=== PATIENT | male | born 1935 | race Caucasian/White ===

== ENCOUNTER 2017-06-27 08:57 | Outpatient (CLI) | payer MEDICARE, OTHER ==
[~2017-06-27] VITALS: Ht 182.9 cm; Wt 86.1 kg
--- NOTE | ~2017-06-27 | OR ---
PATIENT'S NAME: TANK KEARNS [facility] AGE: 82 Y [address] 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 POSTOPERATIVE DIAGNOSIS: Severe life-limiting claudication of the right lower extremity. PROCEDURE: Aortogram with right lower extremity angiogram. IRONWORKER HELPER SHOP: De Young M.D. ANESTHESIA: MAC, local. ESTIMATED BLOOD LOSS: 10 mL. 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 DESCRIPTION OF PROCEDURE: The patient was brought to the labelling machine operator, placed supine on the labelling machine operator table, and prepped and draped in a sterile manner. Preoperative time-out was performed. The patient received preoperative antibiotics. We gained access to the left common femoral using ultrasound guidance, using a micropuncture needle, followed by a micropuncture wire, followed by a micropuncture sheath. We exchanged using Seldinger technique for a 5-[place]ib[place] short sheath. We went up in the aorta using a 0.035 Glidewire as well as Omni Flush catheter. Prior to cathing the distal aorta, we performed an angiogram, which showed patent renal vessels and patent common external and internal iliac arteries. There was a large stent placed in the external iliac on the right, which was patent. We went up over the aortic bifurcation, parked our catheter in the common femoral on the right, and performed a series of angiograms of the right lower extremity, which showed that the profunda artery was patent. The SFA was occluded with no actual nub. The SFA then reconstituted just above the knee with normal popliteal artery as well as 3-vessel runoff. The patient will require a bypass from the common femoral down to the below-knee pop. Sheath was removed. Pressure was held for 10 minutes. The patient tolerated the procedure well, transferred to the recovery room, and home later that day. PATIENT'S NAME: TANK KEARNS [facility] AGE: 82 Y [address] ROOM: [id number] [place], [place] [address] LOCATION: GPCU ADMIT DATE: 06/27/2017 OR/Procedure Report DISCHARGE DATE: 06/27/2017 FAMILY PHYSICIAN: Deep Trejo MD ATTENDING PHYSICIAN: Zheng Light ZHENG LIGHT MD FKM/modl /[id number] d: 06/27/176 t: 07/01/17 1110, OPERATIVE SUMMARY
[~2017-06-27 08:57] MED LIST: CARDIZEM CD (T120 MG PO; CELEXA40 MG PO; FLOMAX0.4 MG PO; KLONOPIN1 MG PO; LIPITOR40 MG PO; PLAVIX75 MG PO
[2017-06-27 09:48] LABS: BASOPHIL % 0.4 %; EOSINOPHIL # 0.1 K/uL (0.0-0.5); EOSINOPHIL % 1.9 %; HEMOGLOBIN 13.7 g/dL (11.0-16.0); IMMATURE GRANULOCYTE % 0.3 %; LYMPHOCYTE # 1.6 K/uL (0.8-4.0); LYMPHOCYTE % 21.2 %; MCH 32.9 pg (27.0-34.0); MCHC 34.3 gm/dL (32.0-36.5); MCV 95.9 fl (83.0-98.0); MONOCYTE # 0.7 K/uL (0.0-1.0); MONOCYTE % 8.9 %; MPV 10.6 fl (9.4-12.4); NEUTROPHIL % 67.3 %; NRBC % 0 /100WBC (0-0.00); PLATELET COUNT 153 K/uL (150-450); RBC 4.17 M/uL (3.50-5.50); RDW-CV 13.4 % (11.9-14.6); WBC 7.5 K/uL (4.0-11.0)
[2017-06-27 10:09] LABS: ALBUMIN 3.4 gm/dL (3.5-5.0); ANION GAP 9.8 (10.0-19.0); CALCIUM 8.8 mg/dL (8.5-10.5); CREATININE 0.9 mg/dL (0.6-1.3); POTASSIUM 3.8 mMol/L (3.7-5.1); TOTAL BILIRUBIN 0.7 mg/dL (0.0-1.5); TOTAL PROTEIN 7.2 g/dL (6.0-8.4)
== END 2017-06-27 16:20 | disposition disaster alternative care site (69) ==
LOC: GPOC 08:57 → GPCU 08:57 → GPOC 09:00
PROVIDERS: Surgery Vascular Surgery
PROC: B41DYZZ Fluoroscopy of Aorta and Bilateral Lower Extremity Arteries using Other Contrast (ICD-10-PCS; principal; 2017-06-27)
DX: I70.211 Atherosclerosis of native arteries of extremities with intermittent claudication, right leg (principal); I77.1 Stricture of artery
CPT/HCPCS: C1769; C1887; J0690; J1644; J2001; J2250; J3010; J7030